=== PATIENT | female | born 1970 | race American Indian/Alaskan Native ===

== ENCOUNTER 2017-04-07 12:57 | Outpatient (CLI) | payer BC ==
--- NOTE | 2017-04-07 13:53 | Mammography Report ---
Implant mammogram: Routine imaging over the whole breast as well as displacement images are compared to a comparable exam and March 2016. Submuscular implants are intact bilaterally. The patient had a right mastectomy for cancer with clips placed superiorly. The left breast pattern is unremarkable. These findings are unchanged compared to her prior study. No evidence of recurrent disease. CAD used. Impression: Stable breast pattern. Recommendation: Annual mammogram followup. BI-RADS CATEGORY: 2 = Benign ACR BI-RADS MAMMOGRAPHIC CODES: 0 = Needs additional imaging evaluation; 1 = Negative; 2 = Benign; 3 = Probably benign; 4 = Suspicious; 5 = Malignant; 6 = Known biopsy-proven malignancy COMMENT: 1. Dense breast tissue, i.e., adenosis, fibrocystic changes, etc., may obscure an underlying neoplasm. 2. Approximately 10% of cancers are not detected with mammography. 3. A negative mammography report should not delay biopsy if a clinically suspicious mass is present.
== END 2017-04-07 12:58 | disposition home or self-care (01) ==
LOC: MAMMO 12:57
DX: Z12.31 Encounter for screening mammogram for malignant neoplasm of breast (principal); Z90.11 Acquired absence of right breast and nipple
CPT/HCPCS: 77067; G0202

== ENCOUNTER 2018-04-08 11:36 | Outpatient (CLI) | payer BC ==
--- NOTE | 2018-04-08 16:04 | Mammography Report ---
BILATERAL DIGITAL AUGMENTED SCREENING MAMMOGRAM with CAD: 04/08/18 11:36:00 CLINICAL: Routine screening. Status post right mastectomy with TRAM/implant reconstruction and status post left breast augmentation. COMPARISON:04/07/17 and 04/03/16 FINDINGS: Routine views of the right breast and screening views of the left breast with and without implant displacement performed. The reconstructed right breast is negative. A left upper asymmetry on the implant displaced MLO view requires additional imaging. No architectural distortion or suspicious calcifications. Intact subpectoral implants. IMPRESSION: Left asymmetry requiring additional imaging. BI-RADS CATEGORY: 0 -- Needs Additional Imaging RECOMMENDATION: Recall for left implant displaced spot compression MLO view and left breast ultrasound if needed. ACR BI-RADS MAMMOGRAPHIC CODES: 0 = Needs additional imaging evaluation; 1 = Negative; 2 = Benign; 3 = Probably benign; 4 = Suspicious; 5 = Malignant; 6 = Known biopsy-proven malignancy COMMENT: 1. Dense breast tissue, i.e., adenosis, fibrocystic changes, etc., may obscure an underlying neoplasm. 2. Approximately 10% of cancers are not detected with mammography. 3. A negative mammography report should not delay biopsy if a clinically suspicious mass is present. COMMENT: Patient follow-up letters are generated via our [employer] application.
== END 2018-04-08 11:37 | disposition home or self-care (01) ==
LOC: MAMMO 11:36
DX: Z12.31 Encounter for screening mammogram for malignant neoplasm of breast (principal)
CPT/HCPCS: 77067